=== PATIENT | female | born 1955 | race Caucasian/White ===

== ENCOUNTER → 2019-04-28 | Day surgery (SDC) | payer OTHER ==
[~2019-04-28] MED LIST: BALANCED SALT SOLN 15 ML OPH IRRIG; FENTAnyl 50 MCG/ML VIAL; FENTAnyl 50 MCG/ML VIAL IV; HYDROmorphONE 1 MG/5 ML IV SYRINGE IV; LABETALOL HCL 20MG INJ IV; LIDOCAINE 1.5%/EPI MPF (SDV) 30 ML VIAL; LIDOCAINE 2% (SDV) 5 ML INJ; MEPERIDINE 25 MG INJ IV; METOCLOPRAMIDE 10 MG INJ IV; MIDAZOLAM 1 MG/ML 2 ML INJ; MITOMYCIN 5 MG INJ OP; ONDANSETRON 4 MG INJ IV; PROPOFOL 20 ML
[2019-04-28] MEDS: MOXIFLOXACIN 0.5% 3 ML OPH OPER (09:47)
[2019-04-28] MEDS: SOD CHLORIDE 0.9% 1,000 ML IV (09:47)
[2019-04-28] MEDS: TETRACAINE 0.5% 4 ML OPH RIGHT EYE (10:25)
[2019-04-28] MEDS: LIDOCAINE 2%/EPI (MDV) 20ML INJ INJ (10:40)
[2019-04-28] MEDS: BUPIVACAINE 0.5% (MPF) 30 ML INJ INJ (10:40)
[2019-04-28] MEDS: TOBRAMYCIN/DEXAMETH 3.5 GM OPH OINT RIGHT EYE (11:00)
== END | disposition home or self-care (01) ==
LOC: SDS 08:48
DX: H11.001 Unspecified pterygium of right eye (principal); I10 Essential (primary) hypertension; E11.9 Type 2 diabetes mellitus without complications
CPT/HCPCS: 65426